=== PATIENT | male | born 1995 | race Two or more races ===

== ENCOUNTER 2022-12-09 15:47 | Emergency (ER) | payer OTHER ==
[~2022-12-09] VITALS: Ht 177.8 cm; Wt 105.8 kg
[2022-12-09 15:56] VITALS: BP 149/82
[2022-12-10 08:53] LABS: Hepatitis B Surface Antibody Negative (Negative)
== END 2022-12-09 18:01 | disposition home or self-care (01) ==
LOC: ER 15:47
DX: S61.402A Unspecified open wound of left hand, initial encounter (principal); W27.3XXA Contact with needle (sewing), initial encounter; Y93.89 Activity, other specified; Y92.89 Other specified places as the place of occurrence of the external cause; Y99.8 Other external cause status
CPT/HCPCS: 36415; 86703; 86706; 86803; 87340